=== PATIENT | female | born 1995 | race Caucasian/White ===

== ENCOUNTER 2022-06-19 09:57 | Emergency (ER) | payer OTHER ==
[~2022-06-19] VITALS: Ht 175.3 cm; Wt 117.7 kg
[2022-06-19 10:04] VITALS: BP 127/77
[2022-06-19] MEDS ORDERED: NIRM1TAB5 PO ×2 (11:12)
== END 2022-06-19 11:32 | disposition home or self-care (01) ==
LOC: ER 09:58
DX: U07.1 COVID-19 (principal); J45.909 Unspecified asthma, uncomplicated
CPT/HCPCS: 99283